=== PATIENT | female | born 1970 ===

== ENCOUNTER 2024-12-08 10:49 | Emergency (ER) | payer SELFPAY ==
[2024-12-08 11:23] LABS: Bacteria/HPF None Seen HPF (None Seen); CAUTI Indications for Culture Acute Hematuria; Glucose, Urine (Dipstick) Normal (Negative); Leukocyte 250 Leu/uL (Negative); Protein, Urine (Dipstick) Negative (Neg-Trace); RBC/HPF 0-3 HPF (0-3); Specific Gravity, Urine 1.009 (1.002-1.036); WBC/HPF 0-3 HPF (0-3)
[2024-12-08 11:24] LABS: Urine Culture Reflex No No
== END 2024-12-08 12:05 | disposition home or self-care (01) ==
LOC: ERS 10:49
DX: N39.0 Urinary tract infection, site not specified (principal)
CPT/HCPCS: 81001; 99283